=== PATIENT | male | born 1970 | race African-American/Black ===

== ENCOUNTER 2016-11-09 11:35 | Observation (INO) | payer BC ==
[~2016-11-09] VITALS: Ht 175.3 cm; Wt 101.8 kg
[2016-11-09] MEDS ORDERED: NITROGLYCERIN 2% OINT 1 INCH PKT TOPICAL ONE (11:54)
[2016-11-09] MEDS ORDERED: ONDANSETRON 4 MG VIAL ONE (11:54)
[2016-11-09] MEDS ORDERED: MORPHINE 4 MG/ML SYR ONE (11:54)
[2016-11-09] MEDS ORDERED: DIPHENHYDRAMINE 50 MG/ML VIAL ONE (12:41)
[2016-11-09] MEDS ORDERED: PROMETHAZINE 25 MG/ML VIAL ONE (12:41)
[2016-11-09] MEDS ORDERED: SODIUM CHLORIDE 0.9% 50 ML IV ONE (12:42)
[2016-11-09] MEDS ORDERED: DOCUSATE SOD 100 MG CAP PO PRN (14:25)
[2016-11-09] MEDS ORDERED: ASPIRIN 81 MG CHEW TAB PO ONE (14:25)
[2016-11-09] MEDS ORDERED: MORPHINE 2 MG/ML SYR IV PRN (14:25)
[2016-11-09] MEDS ORDERED: TEMAZEPAM 15 MG CAP PO PRN (14:25)
[2016-11-09] MEDS ORDERED: SALINE FLUSH 10 ML FLUSH PRN (14:25)
[2016-11-09] MEDS ORDERED: LORAZEPAM 0.5 MG TAB PO PRN (14:25)
[2016-11-09] MEDS ORDERED: NITROGLYCERIN 50 MG/250 ML IV PRN (14:25)
[2016-11-09] MEDS ORDERED: ACETAMINOPHEN 325 MG TAB PO PRN (14:25)
[2016-11-09] MEDS ORDERED: ONDANSETRON 4 MG VIAL IV PRN (14:25)
[2016-11-09] MEDS ORDERED: SODIUM CHLORIDE 0.9% FLUSH BAG 500 ML IV PRN (14:25)
[2016-11-09] MEDS ORDERED: NITROGLYCERIN SL 0.4 MG TAB SL PRN (14:25)
[2016-11-09] MEDS ORDERED: TRAMADOL 50 MG TAB PO PRN (14:25)
[2016-11-09 14:34] VITALS: BP_SYST 138; BP_SYST 140; RESP 18; TEMP 97.8
[2016-11-09 14:35] VITALS: Ht 175.3 cm; Wt 101.8 kg
[2016-11-09] MEDS ORDERED: NITROGLYCERIN 2% OINT 1 INCH PKT TOPICAL SCH ×2 (16:00→18:00)
[2016-11-09 16:42] VITALS: RESP 16
[2016-11-09 20:20] VITALS: BP_SYST 125; RESP 18; TEMP 97.8
[2016-11-09] MEDS: SALINE FLUSH 10 ML FLUSH SCH (20:42)
[2016-11-09 23:28] VITALS: BP_SYST 133; RESP 18; TEMP 97.9
[2016-11-10 03:40] VITALS: BP_SYST 115; RESP 18; TEMP 97.9
[2016-11-10 07:43] VITALS: BP_SYST 128; RESP 18; TEMP 97.8
[2016-11-10] MEDS ORDERED: ASPIRIN EC 81 MG TAB PO SCH (08:00)
[2016-11-10] MEDS ORDERED: MISSING DOSE XX ONE (08:15)
[2016-11-10] MEDS: SALINE FLUSH 10 ML FLUSH SCH (08:57)
[2016-11-10] MEDS ORDERED: LISINOPRIL/HCTZ 20/12.5 TAB PO SCH (09:00)
[2016-11-10 14:06] VITALS: BP_SYST 144
[2016-11-10 14:21] VITALS: BP_SYST 144; RESP 18; TEMP 97.8
== END 2016-11-10 13:43 | disposition home or self-care (01) ==
LOC: ENRESERVDT → ENRESERVTM → ER 11:35 → ENPENDDIS 12:59 → EMR 12:59 → PCU 14:14
PROVIDERS: ADMIT Internal Medicine Cardiovascular Disease; ATTEND Internal Medicine Cardiovascular Disease
CPT/HCPCS: 70450; 70544; 71010; 80053; 80061; 84484; 93005; 93017; 93350; 94799; 96365; 96375